=== PATIENT | female | born 1950 | race African-American/Black ===

== ENCOUNTER 2020-05-07 18:25 | Inpatient (IN) ==
[2020-05-07] MEDS ORDERED: LORazepam 2 MG/1 ML VIAL ONE (18:45)
[2020-05-07] MEDS ORDERED: LORazepam 2 MG/1 ML VIAL IV STA ×2 (18:53→22:50)
[2020-05-07] MEDS ORDERED: ONDANSETRON 4 MG/2 ML VIAL IV STA (18:53)
[2020-05-07] MEDS ORDERED: levETIRAcetam 500 MG/5 ML VIAL IV ONE (19:01)
[2020-05-07 19:13] LABS: Allen Test Positive
[2020-05-07 19:14] LABS: ABG Base Excess -10.7 MMOL/L (-2.5-2.5); ABG HCO3 16.1 MMOL/L (20-26); ABG Oxygen Saturation 99.1 % (95-100); ABG PCO2 41.4 MM HG (35-48); ABG PH 7.219 (7.35-7.45); ABG TCO2 15.2 MMOL/L (23-27)
[2020-05-07 19:28] LABS: Basophils % 0.1 % (0.0-0.8); Eosinophils % 0.3 % (0.00-10.9); Hemoglobin 12.8 GM/DL (12.0-16.0); Immature Granulocytes % 0.4 %; Immature Granulocytes Absolute 0.07 #; Lymphocytes # 1.9 10*3/uL (1.4-4.0); Lymphocytes % 12.1 % (21.3-54.2); Mean Corpuscular HGB Conc 31.2 GM/DL (32-36); Mean Platelet Volume 9.4 FL (9.6-12.0); Monocytes % 4.9 % (1.7-12.7); Neutrophils % 82.2 % (38.7-73.9); Platelet Count 240 T/CUMM (130-400); Red Blood Count 4.02 MC/CUMM (3.8-5.5); Red Cell Distribution Width 13.9 % (9.3-17.3); White Blood Count 15.8 T/CUMM (4-12)
[2020-05-07] MEDS ORDERED: SODIUM BICARBONATE 50 MEQ/50 ML VIAL IV STA (19:40)
[2020-05-07 19:48] LABS: Alanine Aminotransferase 26 U/L (13-56); Albumin 3.3 G/DL (3.4-5.0); Alkaline Phosphatase 162 U/L (45-117); Aspartate Amino Transferase 24 U/L (0-37); Bilirubin,Total < 0.39 MG/DL (0.2-1.0); Blood Urea Nitrogen 29 MG/DL (7-18); Calcium 9.1 MG/DL (8.5-10.1); Carbon Dioxide 16 MMOL/L (21-32); Estimated Glom Filtration Rate 0 ML/MIN; Glucose 203 MG/DL (74-106); Osmolality,Calculated 286.7 MOS/KG (273-304); Potassium 3.9 MMOL/L (3.5-5.1); Sodium 138 MMOL/L (136-145); Total Protein 7.8 G/DL (6.4-8.3); Troponin I < 0.015 NG/ML (0.00-0.045)
[2020-05-07 19:50] LABS: PT Patient Result 10.9 SECS (9.8-11.9); Partial Thromboplastin Time 32.2 SECS (23.9-33.8)
[2020-05-07] MEDS ORDERED: hydrALAZINE 20 MG/1 ML VIAL IV STA (19:53)
[2020-05-07 19:56] LABS: Barbiturates Screen,Urine Negative (Negative); Benzodiazepines Screen,Urine Positive (Negative); Cannabinoid Screen,Urine Negative (Negative); Opiate Screen,Urine Negative (Negative); Phencyclidine Screen,Urine Negative (Negative)
[2020-05-07 20:07] LABS: Bilirubin,Urine Negative (Negative); Blood, Urine Small mg/dL (Negative); Glucose,Urine (UA) Negative (Negative); Ketones,Urine Negative (Negative); Mucus,Urine Occasional /LPF (Occasional); Nitrite,Urine Negative (Negative); Protein,Urine >=500 MG/DL; Squamous Epithelial Cell,Urine Occasional /HPF (0-10); Urine Appearance Slightly Hazy (Clear); Urine Color Yellow (Yellow); Urine Specific Gravity 1.015 (1.001-1.035); Urine Urobilinogen < 2.0 EU/DL (0.2-1.0); WBC,Urine 2 /HPF (0-6)
[2020-05-07] MEDS ORDERED: PIPERACILLIN/TAZOBACTAM 3,375 MG in SODIUM CHLORIDE 0.9% 100 ML IV STA (20:19)
[2020-05-07] MEDS ORDERED: LABETALOL 20 MG/4 ML SYRINGE IV STA (20:27)
[2020-05-07] MEDS ORDERED: SODIUM CHLORIDE 0.9% 1,000 ML IV STA (20:31)
[2020-05-07] MEDS ORDERED: FOSPHENYTOIN 500 MG.PE/10 ML VIAL ONE (22:27)
[2020-05-07] MEDS ORDERED: propofoL 200 MG/20 ML VIAL IV ONE (22:36)
[2020-05-07] MEDS ORDERED: VECURONIUM 10 MG VIAL IV STA (22:44)
[2020-05-07] MEDS ORDERED: ETOMIDATE 20 MG/10 ML VIAL IV STA (22:44)
[2020-05-07] MEDS ORDERED: FOSPHENYTOIN 1,000 MG.PE in SODIUM CHLORIDE 0.9% 250 ML IV STA (22:50)
[2020-05-07] MEDS ORDERED: MORPHINE 4 MG/1 ML VIAL IV PRN (23:38)
[2020-05-07] MEDS ORDERED: ALBUTEROL 2.5 MG/3 ML NEB RESP TX PRN (23:38)
[2020-05-07] MEDS ORDERED: ONDANSETRON 4 MG/2 ML VIAL IV PRN (23:38)
[2020-05-07] MEDS ORDERED: FAMOTIDINE 20 MG/2 ML VIAL IV SCH (23:45)
[2020-05-08] MEDS ORDERED: METOPROLOL TARTRATE 5 MG/5 ML VIAL IV PRN (00:14)
[2020-05-08] MEDS: LACTATED RINGERS 1,000 ML IV SCH ×3 (00:22→20:52)
[2020-05-08] MEDS: amLODIPine 10 MG TABLET PER TUBE SCH ×2 (00:46→08:07)
[2020-05-08] MEDS: ENOXAPARIN 40 MG/0.4 ML SYRINGE SUBCUT SCH ×2 (00:46→08:09)
[2020-05-08] MEDS ORDERED: LORazepam 2 MG/1 ML VIAL IV PRN (01:08)
[2020-05-08 04:04] LABS: Basophils % 0.2 % (0.0-0.8); Eosinophils % 0.1 % (0.00-10.9); Hematocrit 37.6 VOL% (35.7-47.0); Hemoglobin 12.2 GM/DL (12.0-16.0); Immature Granulocytes % 0.6 %; Immature Granulocytes Absolute 0.11 #; Lymphocytes # 2.8 10*3/uL (1.4-4.0); Lymphocytes % 15.1 % (21.3-54.2); Mean Corpuscular HGB Conc 32.4 GM/DL (32-36); Mean Corpuscular Volume 98.2 FL (87-102); Mean Platelet Volume 9.2 FL (9.6-12.0); Monocytes % 8.3 % (1.7-12.7); Neutrophils % 75.7 % (38.7-73.9); Platelet Count 214 T/CUMM (130-400); Red Blood Count 3.83 MC/CUMM (3.8-5.5); Red Cell Distribution Width 14.2 % (9.3-17.3); White Blood Count 18.8 T/CUMM (4-12)
[2020-05-08 04:34] LABS: Allen Test Positive; Pt O2 Delivery Device Ventilator
[2020-05-08 04:35] LABS: Alanine Aminotransferase 31 U/L (13-56); Albumin 2.8 G/DL (3.4-5.0); Alkaline Phosphatase 153 U/L (45-117); Aspartate Amino Transferase 33 U/L (0-37); Bilirubin,Total < 0.39 MG/DL (0.2-1.0); Blood Urea Nitrogen 22 MG/DL (7-18); Calcium 8.3 MG/DL (8.5-10.1); Carbon Dioxide 23 MMOL/L (21-32); Estimated Glom Filtration Rate 39 ML/MIN; Glucose 126 MG/DL (74-106); Osmolality,Calculated 283.4 MOS/KG (273-304); Sodium 140 MMOL/L (136-145); Total Protein 7.5 G/DL (6.4-8.3)
[2020-05-08 04:37] LABS: ABG Oxygen Saturation 99.5 % (95-100); ABG PCO2 35.9 MM HG (35-48); ABG PH 7.424 (7.35-7.45); ABG PO2 307.1 MM HG (80-95); ABG TCO2 24.1 MMOL/L (23-27)
[2020-05-08] MEDS ORDERED: MIDAZOLAM 100 MG in SODIUM CHLORIDE 0.9% 80 ML IV PRN (07:37)
[2020-05-08] MEDS: allopurinoL 100 MG TABLET PO SCH (08:07)
[2020-05-08] MEDS: ATORVASTATIN 10 MG TABLET PO SCH (08:07)
[2020-05-08] MEDS: PHENYTOIN 100 MG/2 ML VIAL IV SCH ×2 (08:08→16:50)
[2020-05-08] MEDS: FAMOTIDINE 20 MG/2 ML VIAL IV SCH (08:08)
[2020-05-08 13:38] LABS: VLDL CHOLESTEROL 44.2 MG/DL
[2020-05-08] MEDS ORDERED: GLUCAGON 1 MG VIAL IM PRN (15:08)
[2020-05-08] MEDS ORDERED: DEXTROSE 50% 25 GM/50 ML VIAL IV PRN (15:08)
[2020-05-08] MEDS: INSULIN REGULAR 100 UNIT/ML SUBCUT SCH (17:07)
[2020-05-09] MEDS: INSULIN REGULAR 100 UNIT/ML SUBCUT SCH ×4 (00:55→17:33)
[2020-05-09] MEDS: PHENYTOIN 100 MG/2 ML VIAL IV SCH ×3 (00:55→17:03)
[2020-05-09 04:40] LABS: Allen Test Positive; Pt O2 Delivery Device Ventilator
[2020-05-09 04:43] LABS: ABG Base Excess -0.3 MMOL/L (-2.5-2.5); ABG HCO3 23.2 MMOL/L (20-26); ABG Oxygen Saturation 99.3 % (95-100); ABG PCO2 34.4 MM HG (35-48); ABG PH 7.447 (7.35-7.45); ABG PO2 240.3 MM HG (80-95); ABG TCO2 24.3 MMOL/L (23-27)
[2020-05-09 04:47] LABS: Basophils % 0.2 % (0.0-0.8); Eosinophils # 0.1 10*3/uL (0.0-0.87); Eosinophils % 0.3 % (0.00-10.9); Hemoglobin 12.2 GM/DL (12.0-16.0); Immature Granulocytes % 0.4 %; Immature Granulocytes Absolute 0.06 #; Lymphocytes # 2.7 10*3/uL (1.4-4.0); Lymphocytes % 18.1 % (21.3-54.2); Mean Corpuscular HGB Conc 32.1 GM/DL (32-36); Mean Corpuscular Volume 97.4 FL (87-102); Mean Platelet Volume 9.3 FL (9.6-12.0); Monocytes % 11.1 % (1.7-12.7); Neutrophils % 69.9 % (38.7-73.9); Platelet Count 170 T/CUMM (130-400); Red Cell Distribution Width 14.2 % (9.3-17.3)
[2020-05-09 05:09] LABS: Albumin 2.3 G/DL (3.4-5.0); Bilirubin,Total 0.8 MG/DL (0.2-1.0); Calcium 8.1 MG/DL (8.5-10.1); Potassium 3.9 MMOL/L (3.5-5.1); Total Protein 6.9 G/DL (6.4-8.3)
[2020-05-09] MEDS: LACTATED RINGERS 1,000 ML IV SCH ×2 (07:38→17:33)
[2020-05-09] MEDS: allopurinoL 100 MG TABLET PO SCH (08:07)
[2020-05-09] MEDS: amLODIPine 10 MG TABLET PER TUBE SCH (08:07)
[2020-05-09] MEDS: ATORVASTATIN 10 MG TABLET PO SCH (08:07)
[2020-05-09] MEDS: FAMOTIDINE 20 MG/2 ML VIAL IV SCH (08:07)
[2020-05-09] MEDS: ASPIRIN CHEW 81 MG TABLET PO SCH (08:07)
[2020-05-09] MEDS: ENOXAPARIN 30 MG/0.3 ML SYRINGE SUBCUT SCH (08:34)
[2020-05-10] MEDS: INSULIN REGULAR 100 UNIT/ML SUBCUT SCH ×4 (01:15→17:50)
[2020-05-10] MEDS: PHENYTOIN 100 MG/2 ML VIAL IV SCH ×3 (01:22→18:06)
[2020-05-10 01:58] LABS: Calcium 8.2 MG/DL (8.5-10.1); Osmolality,Calculated 282.5 MOS/KG (273-304); Potassium 4.3 MMOL/L (3.5-5.1)
[2020-05-10 02:16] LABS: Pt O2 Delivery Device Ventilator
[2020-05-10 02:17] LABS: ABG Base Excess 2.3 MMOL/L (-2.5-2.5); ABG HCO3 26.5 MMOL/L (20-26); ABG Oxygen Saturation 98.9 % (95-100); ABG PCO2 39.6 MM HG (35-48); ABG PH 7.443 (7.35-7.45); ABG PO2 168.8 MM HG (80-95); ABG TCO2 27.7 MMOL/L (23-27)
[2020-05-10 03:11] LABS: Basophils % 0.2 % (0.0-0.8); Eosinophils # 0.4 10*3/uL (0.0-0.87); Eosinophils % 2.1 % (0.00-10.9); Hematocrit 36.6 VOL% (35.7-47.0); Hemoglobin 11.5 GM/DL (12.0-16.0); Immature Granulocytes % 0.4 %; Immature Granulocytes Absolute 0.06 #; Lymphocytes # 2.8 10*3/uL (1.4-4.0); Lymphocytes % 16.5 % (21.3-54.2); Mean Corpuscular HGB Conc 31.4 GM/DL (32-36); Mean Corpuscular Volume 99.5 FL (87-102); Monocytes % 8.5 % (1.7-12.7); Neutrophils % 72.3 % (38.7-73.9); Platelet Count 210 T/CUMM (130-400); Red Blood Count 3.68 MC/CUMM (3.8-5.5); Red Cell Distribution Width 14.2 % (9.3-17.3)
[2020-05-10] MEDS: LACTATED RINGERS 1,000 ML IV SCH ×3 (03:38→23:42)
[2020-05-10] MEDS: amLODIPine 10 MG TABLET PER TUBE SCH (10:22)
[2020-05-10] MEDS: ATORVASTATIN 10 MG TABLET PO SCH (10:22)
[2020-05-10] MEDS: ASPIRIN CHEW 81 MG TABLET PO SCH (10:22)
[2020-05-10] MEDS: ENOXAPARIN 30 MG/0.3 ML SYRINGE SUBCUT SCH (10:22)
[2020-05-10] MEDS: allopurinoL 100 MG TABLET PO SCH (10:23)
[2020-05-10] MEDS: FAMOTIDINE 20 MG/2 ML VIAL IV SCH (10:25)
[2020-05-10] MEDS: carvediloL 3.125 MG TABLET PO SCH (21:18)
[2020-05-11] MEDS: INSULIN REGULAR 100 UNIT/ML SUBCUT SCH ×4 (00:14→18:50)
[2020-05-11] MEDS: PHENYTOIN 100 MG/2 ML VIAL IV SCH (02:15)
[2020-05-11 04:25] LABS: Basophils # 0.1 10*3/uL (0.0-0.2); Basophils % 0.4 % (0.0-0.8); Eosinophils # 0.6 10*3/uL (0.0-0.87); Eosinophils % 3.9 % (0.00-10.9); Hemoglobin 11.2 GM/DL (12.0-16.0); Immature Granulocytes % 0.4 %; Immature Granulocytes Absolute 0.05 #; Lymphocytes # 2.5 10*3/uL (1.4-4.0); Lymphocytes % 17.7 % (21.3-54.2); Mean Corpuscular HGB Conc 31.1 GM/DL (32-36); Mean Corpuscular Volume 100.6 FL (87-102); Mean Platelet Volume 9.1 FL (9.6-12.0); Monocytes % 8.1 % (1.7-12.7); Neutrophils % 69.5 % (38.7-73.9); Platelet Count 192 T/CUMM (130-400); Red Blood Count 3.58 MC/CUMM (3.8-5.5); Red Cell Distribution Width 14.1 % (9.3-17.3); White Blood Count 14.3 T/CUMM (4-12)
[2020-05-11 05:08] LABS: Calcium 8.4 MG/DL (8.5-10.1); Osmolality,Calculated 283.1 MOS/KG (273-304); Potassium 4.7 MMOL/L (3.5-5.1)
[2020-05-11] MEDS: LACTATED RINGERS 1,000 ML IV SCH ×2 (07:01→14:09)
[2020-05-11] MEDS: ASPIRIN CHEW 81 MG TABLET PO SCH (09:08)
[2020-05-11] MEDS: allopurinoL 100 MG TABLET PO SCH (09:09)
[2020-05-11] MEDS: FAMOTIDINE 20 MG TABLET PO SCH (09:09)
[2020-05-11] MEDS: ENOXAPARIN 40 MG/0.4 ML SYRINGE SUBCUT SCH (09:09)
[2020-05-11] MEDS: carvediloL 3.125 MG TABLET PO SCH ×2 (09:09→22:19)
[2020-05-11] MEDS: amLODIPine 10 MG TABLET PER TUBE SCH (09:09)
[2020-05-11] MEDS: PHENYTOIN ER 100 MG CAPSULE PO SCH ×3 (09:09→22:19)
[2020-05-11] MEDS: ATORVASTATIN 40 MG TABLET PO SCH (09:09)
[2020-05-12] MEDS: INSULIN REGULAR 100 UNIT/ML SUBCUT SCH ×4 (00:57→18:08)
[2020-05-12] MEDS: ASPIRIN CHEW 81 MG TABLET PO SCH (08:49)
[2020-05-12] MEDS: PHENYTOIN ER 100 MG CAPSULE PO SCH ×3 (08:50→21:53)
[2020-05-12] MEDS: ATORVASTATIN 40 MG TABLET PO SCH (08:50)
[2020-05-12] MEDS: carvediloL 3.125 MG TABLET PO SCH ×2 (08:51→21:53)
[2020-05-12] MEDS: ENOXAPARIN 40 MG/0.4 ML SYRINGE SUBCUT SCH (08:51)
[2020-05-12] MEDS: allopurinoL 100 MG TABLET PO SCH (08:51)
[2020-05-12] MEDS: amLODIPine 10 MG TABLET PER TUBE SCH (08:51)
[2020-05-12] MEDS: FAMOTIDINE 20 MG TABLET PO SCH (08:51)
[2020-05-12 11:00] LABS: Basophils % 0.3 % (0.0-0.8); Eosinophils # 0.6 10*3/uL (0.0-0.87); Eosinophils % 4.7 % (0.00-10.9); Hematocrit 39.9 VOL% (35.7-47.0); Hemoglobin 12.4 GM/DL (12.0-16.0); Immature Granulocytes % 0.3 %; Immature Granulocytes Absolute 0.04 #; Lymphocytes # 2.3 10*3/uL (1.4-4.0); Lymphocytes % 19.6 % (21.3-54.2); Mean Corpuscular HGB Conc 31.1 GM/DL (32-36); Mean Corpuscular Volume 101.5 FL (87-102); Monocytes % 9.5 % (1.7-12.7); Neutrophils % 65.6 % (38.7-73.9); Platelet Count 247 T/CUMM (130-400); Red Blood Count 3.93 MC/CUMM (3.8-5.5); Red Cell Distribution Width 13.9 % (9.3-17.3); White Blood Count 11.8 T/CUMM (4-12)
[2020-05-12 11:16] LABS: Calcium 8.7 MG/DL (8.5-10.1); Potassium 4.6 MMOL/L (3.5-5.1)
[2020-05-13] MEDS: INSULIN REGULAR 100 UNIT/ML SUBCUT SCH ×4 (00:19→18:35)
[2020-05-13 05:56] LABS: Basophils % 0.3 % (0.0-0.8); Eosinophils # 0.5 10*3/uL (0.0-0.87); Eosinophils % 4.4 % (0.00-10.9); Hematocrit 34.9 VOL% (35.7-47.0); Hemoglobin 11.1 GM/DL (12.0-16.0); Immature Granulocytes % 0.4 %; Immature Granulocytes Absolute 0.04 #; Lymphocytes # 2.6 10*3/uL (1.4-4.0); Lymphocytes % 22.9 % (21.3-54.2); Mean Corpuscular HGB Conc 31.8 GM/DL (32-36); Mean Platelet Volume 9.4 FL (9.6-12.0); Monocytes % 10.1 % (1.7-12.7); Neutrophils % 61.9 % (38.7-73.9); Platelet Count 241 T/CUMM (130-400); Red Blood Count 3.56 MC/CUMM (3.8-5.5); Red Cell Distribution Width 13.8 % (9.3-17.3); White Blood Count 11.2 T/CUMM (4-12)
[2020-05-13 06:19] LABS: Calcium 8.3 MG/DL (8.5-10.1); Osmolality,Calculated 280.5 MOS/KG (273-304); Potassium 4.5 MMOL/L (3.5-5.1)
[2020-05-13] MEDS: carvediloL 3.125 MG TABLET PO SCH ×2 (09:19→21:12)
[2020-05-13] MEDS: FAMOTIDINE 20 MG TABLET PO SCH (09:19)
[2020-05-13] MEDS: ATORVASTATIN 40 MG TABLET PO SCH (09:19)
[2020-05-13] MEDS: allopurinoL 100 MG TABLET PO SCH (09:19)
[2020-05-13] MEDS: ASPIRIN CHEW 81 MG TABLET PO SCH (09:19)
[2020-05-13] MEDS: ENOXAPARIN 40 MG/0.4 ML SYRINGE SUBCUT SCH (09:20)
[2020-05-13] MEDS: PHENYTOIN ER 100 MG CAPSULE PO SCH ×3 (09:20→21:12)
[2020-05-13] MEDS: amLODIPine 10 MG TABLET PER TUBE SCH (09:20)
[2020-05-14] MEDS: INSULIN REGULAR 100 UNIT/ML SUBCUT SCH ×2 (02:52→07:32)
[2020-05-14 05:08] LABS: Basophils % 0.3 % (0.0-0.8); Eosinophils # 0.4 10*3/uL (0.0-0.87); Eosinophils % 3.1 % (0.00-10.9); Hematocrit 34.5 VOL% (35.7-47.0); Immature Granulocytes % 0.3 %; Immature Granulocytes Absolute 0.04 #; Lymphocytes # 2.8 10*3/uL (1.4-4.0); Lymphocytes % 21.5 % (21.3-54.2); Mean Corpuscular HGB Conc 31.9 GM/DL (32-36); Mean Corpuscular Volume 98.3 FL (87-102); Monocytes % 8.7 % (1.7-12.7); Neutrophils % 66.1 % (38.7-73.9); Platelet Count 271 T/CUMM (130-400); Red Blood Count 3.51 MC/CUMM (3.8-5.5)
[2020-05-14 05:33] LABS: Calcium 8.7 MG/DL (8.5-10.1); Osmolality,Calculated 276.8 MOS/KG (273-304); Potassium 4.7 MMOL/L (3.5-5.1)
[2020-05-14] MEDS: ATORVASTATIN 40 MG TABLET PO SCH (08:59)
[2020-05-14] MEDS: ASPIRIN CHEW 81 MG TABLET PO SCH (09:00)
[2020-05-14] MEDS: PHENYTOIN ER 100 MG CAPSULE PO SCH (09:00)
[2020-05-14] MEDS: allopurinoL 100 MG TABLET PO SCH (09:00)
[2020-05-14] MEDS: FAMOTIDINE 20 MG TABLET PO SCH (09:01)
[2020-05-14] MEDS: ENOXAPARIN 40 MG/0.4 ML SYRINGE SUBCUT SCH (09:01)
[2020-05-14] MEDS: carvediloL 3.125 MG TABLET PO SCH (09:01)
[2020-05-14] MEDS: amLODIPine 10 MG TABLET PER TUBE SCH (09:01)
[2020-05-14 12:25] VITALS: BP 138/63
== END 2020-05-14 12:30 | disposition home or self-care (01) | DRG 101 ==
LOC: N.ED 18:25 → N.EDINP 21:17 → SUATTDRO 21:17 → N.ICU 23:31 → N.TELES 05-11 13:59
PROVIDERS: ADMIT Internal Medicine; ATTEND Internal Medicine

== ENCOUNTER 2021-09-11 11:37 | Inpatient (IN) ==
[2021-09-11] MEDS ORDERED: ONDANSETRON 4 MG/2 ML VIAL IV STA (12:31)
[2021-09-11] MEDS ORDERED: SODIUM CHLORIDE 0.9% 500 ML IV STA (12:31)
[2021-09-11 13:43] LABS: Basophils % 0.2 % (0.0-0.8); Eosinophils % 0.3 % (0.00-10.9); Hematocrit 37.3 VOL% (35.7-47.0); Hemoglobin 12.2 GM/DL (12.0-16.0); Immature Granulocytes % 0.3 %; Immature Granulocytes Absolute 0.04 #; Lymphocytes # 2.3 10*3/uL (1.4-4.0); Mean Corpuscular HGB Conc 32.7 GM/DL (32-36); Mean Corpuscular Volume 98.9 FL (87-102); Mean Platelet Volume 9.4 FL (9.6-12.0); Monocytes # 0.8 10*3/uL (0.11-0.8); Monocytes % 7.1 % (1.7-12.7); NRBC # 0.02 10*3/uL; Neutrophils % 72.1 % (38.7-73.9); Platelet Count 266 T/CUMM (130-400); Red Blood Count 3.77 MC/CUMM (3.8-5.5); Red Cell Distribution Width 15.2 % (9.3-17.3); White Blood Count 11.5 T/CUMM (4-12)
[2021-09-11 14:23] LABS: Alanine Aminotransferase 22 U/L (13-56); Alkaline Phosphatase 133 U/L (45-117); Aspartate Amino Transferase 15 U/L (0-37); Bilirubin,Total < 0.39 MG/DL (0.20-1.00); Blood Urea Nitrogen 26 MG/DL (7-18); Carbon Dioxide 24 MMOL/L (21-32); Chloride 108 MMOL/L (98-107); Glucose 156 MG/DL (74-106); Osmolality,Calculated 286.4 MOS/KG (273-304); Potassium 4.5 MMOL/L (3.5-5.1); Sodium 140 MMOL/L (136-145)
[2021-09-11 14:40] LABS: Bacteria,Urine Occasional /HPF (Few); Bilirubin,Urine Small mg/dL (Negative); Glucose,Urine (UA) Negative (Negative); Hyaline Casts,Urine 11 /LPF (0-3); Ketones,Urine Trace mg/dL (Negative); Mucus,Urine Occasional /LPF (Occasional); Nitrite,Urine Negative (Negative); Protein,Urine >=300 mg/dL (Negative); RBC,Urine 1 /HPF (0-4); Squamous Epithelial Cell,Urine Occasional /HPF (0-10); Urine Appearance Clear (Clear); Urine Color Yellow (Yellow); Urine Specific Gravity >= 1.030 (1.001-1.035); Urine pH 5.5 (4.5-8.0)
[2021-09-11 14:41] LABS: Blood, Urine Trace mg/dL (Negative); Urine Urobilinogen 0.2 eU/dL (<2.0)
[2021-09-11] MEDS ORDERED: GLUCAGON 1 MG VIAL IM PRN (15:20)
[2021-09-11] MEDS ORDERED: DEXTROSE 10% 250 ML BAG IV PRN (15:20)
[2021-09-11] MEDS ORDERED: ONDANSETRON 4 MG/2 ML VIAL IV PRN (15:20)
[2021-09-11] MEDS ORDERED: MAGNESIUM SULF RIDER 4 GM/100 ML PREMIX IV PRN (15:50)
[2021-09-11] MEDS ORDERED: MAGNESIUM SULF RIDER 2 GM/50 ML PREMIX IV PRN (15:50)
[2021-09-11] MEDS: MORPHINE 2 MG/1 ML SYRINGE IV PRN (15:51)
[2021-09-11] MEDS: ENOXAPARIN 30 MG/0.3 ML SYRINGE SUBCUT SCH (15:52)
[2021-09-11] MEDS ORDERED: ALBUTEROL 2.5 MG/3 ML NEB RESP TX PRN (16:30)
[2021-09-11] MEDS: LACTATED RINGERS 1,000 ML IV SCH (17:54)
[2021-09-11] MEDS: INSULIN LISPRO 100 UNIT/ML SUBCUT SCH (18:05)
[2021-09-12] MEDS: MORPHINE 2 MG/1 ML SYRINGE IV PRN ×3 (00:06→18:46)
[2021-09-12] MEDS: LACTATED RINGERS 1,000 ML IV SCH ×3 (01:16→19:40)
[2021-09-12] MEDS: INSULIN LISPRO 100 UNIT/ML SUBCUT SCH ×4 (01:21→18:52)
[2021-09-12 05:30] LABS: Basophils % 0.1 % (0.0-0.8); Eosinophils % 0.2 % (0.00-10.9); Hematocrit 34.3 VOL% (35.7-47.0); Immature Granulocytes % 0.4 %; Immature Granulocytes Absolute 0.06 #; Lymphocytes % 15.1 % (21.3-54.2); Mean Corpuscular HGB Conc 32.1 GM/DL (32-36); Mean Corpuscular Volume 100.9 FL (87-102); Mean Platelet Volume 9.8 FL (9.6-12.0); Monocytes # 0.9 10*3/uL (0.11-0.8); Monocytes % 6.7 % (1.7-12.7); Neutrophils % 77.5 % (38.7-73.9); Platelet Count 235 T/CUMM (130-400); Red Cell Distribution Width 15.1 % (9.3-17.3); White Blood Count 13.5 T/CUMM (4-12)
[2021-09-12 05:52] LABS: Alanine Aminotransferase 18 U/L (13-56); Albumin 3.2 G/DL (3.4-5.0); Alkaline Phosphatase 103 U/L (45-117); Aspartate Amino Transferase 13 U/L (0-37); Bilirubin,Total < 0.39 MG/DL (0.20-1.00); Blood Urea Nitrogen 28 MG/DL (7-18); Calcium 9.2 MG/DL (8.5-10.1); Carbon Dioxide 23 MMOL/L (21-32); Chloride 111 MMOL/L (98-107); Cholesterol 96 MG/DL (50-200); Glucose 139 MG/DL (74-106); HDL Cholesterol 26 MG/DL (40-60); Osmolality,Calculated 286.4 MOS/KG (273-304); Potassium 4.5 MMOL/L (3.5-5.1); Risk Ratio 3.69; Sodium 140 MMOL/L (136-145); Total Protein 6.9 G/DL (6.4-8.2); Triglycerides 217 MG/DL (2-150); VLDL Cholesterol 43.4 MG/DL
[2021-09-12] MEDS: ENOXAPARIN 30 MG/0.3 ML SYRINGE SUBCUT SCH (16:35)
[2021-09-13] MEDS: INSULIN LISPRO 100 UNIT/ML SUBCUT SCH ×4 (01:03→18:04)
[2021-09-13] MEDS: LACTATED RINGERS 1,000 ML IV SCH ×4 (01:03→18:04)
[2021-09-13 05:05] LABS: Basophils % 0.3 % (0.0-0.8); Eosinophils # 0.2 10*3/uL (0.0-0.87); Eosinophils % 1.4 % (0.00-10.9); Hematocrit 33.2 VOL% (35.7-47.0); Hemoglobin 10.5 GM/DL (12.0-16.0); Immature Granulocytes % 0.3 %; Immature Granulocytes Absolute 0.03 #; Lymphocytes # 2.5 10*3/uL (1.4-4.0); Lymphocytes % 22.6 % (21.3-54.2); Mean Corpuscular HGB Conc 31.6 GM/DL (32-36); Mean Corpuscular Volume 102.2 FL (87-102); Mean Platelet Volume 9.5 FL (9.6-12.0); Monocytes # 0.9 10*3/uL (0.11-0.8); Monocytes % 8.2 % (1.7-12.7); Neutrophils % 67.2 % (38.7-73.9); Platelet Count 218 T/CUMM (130-400); Red Blood Count 3.25 MC/CUMM (3.8-5.5); Red Cell Distribution Width 14.9 % (9.3-17.3); White Blood Count 10.8 T/CUMM (4-12)
[2021-09-13 05:24] LABS: Calcium 9.2 MG/DL (8.5-10.1); Osmolality,Calculated 287.8 MOS/KG (273-304)
[2021-09-13 05:25] LABS: Albumin 3.2 G/DL (3.4-5.0); Bilirubin,Total 0.4 MG/DL (0.20-1.00); Calcium 9.1 MG/DL (8.5-10.1); Potassium 4.3 MMOL/L (3.5-5.1)
[2021-09-13] MEDS ORDERED: MAGNESIUM SULF RIDER 2 GM/50 ML PREMIX IV ONE (09:21)
[2021-09-13 09:42] LABS: % Iron Saturation 15.8 % (18-50)
[2021-09-13 09:46] LABS: Folate 10.41 NG/ML (5.38-24.0)
[2021-09-13] MEDS: ENOXAPARIN 30 MG/0.3 ML SYRINGE SUBCUT SCH (16:30)
[2021-09-14] MEDS: INSULIN LISPRO 100 UNIT/ML SUBCUT SCH ×5 (00:48→23:54)
[2021-09-14] MEDS: LACTATED RINGERS 1,000 ML IV SCH ×3 (00:48→21:23)
[2021-09-14 06:25] LABS: Basophils % 0.2 % (0.0-0.8); Eosinophils # 0.1 10*3/uL (0.0-0.87); Eosinophils % 1.5 % (0.00-10.9); Hematocrit 30.1 VOL% (35.7-47.0); Hemoglobin 9.6 GM/DL (12.0-16.0); Immature Granulocytes % 0.5 %; Immature Granulocytes Absolute 0.05 #; Lymphocytes # 2.1 10*3/uL (1.4-4.0); Lymphocytes % 22.7 % (21.3-54.2); Mean Corpuscular HGB Conc 31.9 GM/DL (32-36); Monocytes # 0.7 10*3/uL (0.11-0.8); Monocytes % 7.9 % (1.7-12.7); Neutrophils % 67.2 % (38.7-73.9); Platelet Count 197 T/CUMM (130-400); Red Blood Count 2.98 MC/CUMM (3.8-5.5); Red Cell Distribution Width 14.7 % (9.3-17.3); White Blood Count 9.2 T/CUMM (4-12)
[2021-09-14 06:43] LABS: Osmolality,Calculated 285.8 MOS/KG (273-304)
[2021-09-14] MEDS: FERROUS SULFATE 325 MG TABLET PO SCH (17:14)
[2021-09-14] MEDS: ENOXAPARIN 30 MG/0.3 ML SYRINGE SUBCUT SCH (17:15)
[2021-09-14] MEDS ORDERED: allopurinoL 100 MG TABLET PO SCH (21:00)
[2021-09-14] MEDS: carvediloL 3.125 MG TABLET PO SCH (21:06)
[2021-09-14] MEDS: DOCUSATE SODIUM 100 MG CAPSULE PO SCH (21:07)
[2021-09-14] MEDS: OLAPARIB 150 MG PO SCH (21:22)
[2021-09-15] MEDS: LACTATED RINGERS 1,000 ML IV SCH ×2 (03:28→08:05)
[2021-09-15 05:22] LABS: Basophils % 0.2 % (0.0-0.8); Eosinophils # 0.2 10*3/uL (0.0-0.87); Eosinophils % 2.2 % (0.00-10.9); Hematocrit 29.7 VOL% (35.7-47.0); Hemoglobin 9.5 GM/DL (12.0-16.0); Immature Granulocytes % 0.3 %; Immature Granulocytes Absolute 0.03 #; Lymphocytes # 2.4 10*3/uL (1.4-4.0); Lymphocytes % 26.4 % (21.3-54.2); Mean Corpuscular Volume 102.1 FL (87-102); Mean Platelet Volume 9.4 FL (9.6-12.0); Monocytes # 0.7 10*3/uL (0.11-0.8); Monocytes % 7.5 % (1.7-12.7); Neutrophils % 63.4 % (38.7-73.9); Platelet Count 207 T/CUMM (130-400); Red Blood Count 2.91 MC/CUMM (3.8-5.5); Red Cell Distribution Width 14.4 % (9.3-17.3); White Blood Count 9.3 T/CUMM (4-12)
[2021-09-15 05:26] LABS: Osmolality,Calculated 278.4 MOS/KG (273-304); Potassium 3.9 MMOL/L (3.5-5.1)
[2021-09-15] MEDS: INSULIN LISPRO 100 UNIT/ML SUBCUT SCH ×2 (05:43→11:25)
[2021-09-15] MEDS ORDERED: ATORVASTATIN 40 MG TABLET PO SCH (09:00)
[2021-09-15] MEDS ORDERED: CHOLECALCIFEROL 5,000 UNIT TABLET PO SCH (09:00)
[2021-09-15] MEDS ORDERED: ASPIRIN EC 81 MG TABLET PO SCH (09:00)
[2021-09-15] MEDS ORDERED: amLODIPine 10 MG TABLET PO SCH (09:00)
[2021-09-15] MEDS ORDERED: LOSARTAN/HCTZ 50-12.5 MG TABLET PO SCH (09:00)
[2021-09-15] MEDS: OLAPARIB 150 MG PO SCH (09:10)
[2021-09-15] MEDS: FERROUS SULFATE 325 MG TABLET PO SCH (09:13)
[2021-09-15] MEDS: DOCUSATE SODIUM 100 MG CAPSULE PO SCH (09:14)
[2021-09-15] MEDS: carvediloL 3.125 MG TABLET PO SCH (09:15)
[2021-09-15] MEDS ORDERED: MAGNESIUM SULF RIDER 4 GM/100 ML PREMIX IV ONE (10:14)
[2021-09-15 12:28] VITALS: BP 147/61
[2021-09-15] MEDS: ENOXAPARIN 30 MG/0.3 ML SYRINGE SUBCUT SCH (15:06)
== END 2021-09-15 15:50 | disposition home or self-care (01) | DRG 394 ==
LOC: N.ED 11:37 → SUATTDRO 15:20 → N.EDINP 15:20 → N.TELES 18:30
PROVIDERS: ADMIT Internal Medicine; ATTEND Internal Medicine